=== PATIENT | female | born 2005 | race Caucasian/White ===

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

== ENCOUNTER 2023-03-07 17:45 | Emergency (ER) | payer OTHER, SELFPAY ==
--- NOTE | ~2023-03-07 | XR_ITS ---
EXAMINATION: XR cervical spine 4-5V DATE: 03/07/2023 19:18 INDICATION: Neck pain. Fall. TECHNIQUE: 6 views of cervical spine were obtained. COMPARISON: None. FINDINGS: There is mild kyphosis of cervical spine. Vertebral body heights and intervertebral disc he ights are normal. The facet joints are normal. No neural foraminal stenosis or central canal stenosis . No prevertebral soft tissue swelling. IMPRESSION: 1. No fracture. Reviewed, dictated and finalized at location E. STED AIRCREW/AERIAL OBSERVER/GUNNER IMPRESSION: 1. No fracture.
--- NOTE | ~2023-03-07 | XR_ITS ---
EXAMINATION: XR lumbar spine 2-3V DATE: 03/07/2023 19:18 INDICATION: Low back pain. Fall. TECHNIQUE: 3 views of lumbar spine on 4 radiographs were obtained. COMPARISON: None. FINDINGS: There is 5 degrees levocurvature of lumbar spine. Vertebral body heights are normal. L4 is a limbus vertebra. Intervertebral disc heights are normal. The facet joints are normal. IMPRESSION: 1. No fracture. Reviewed, dictated and finalized at location E. RAFT RIGGING AND CONTROLS MECHANIC IMPRESSION: 1. No fracture.
[2023-03-07 17:45] VITALS: BP 119/67; PULSE 77; RESP 16; TEMP 37; O2SAT 99
--- NOTE | 2023-03-07 18:04 | ED.BACK ---
HPI - Back Pain/Injury General Chief Complaint: Back Pain/Injury Stated Complaint: back pain Time Seen by Provider: 03/07/23 17:48 Source: patient and family Mode of arrival: ambulatory Limitations: no limitations History of Present Illness HPI Narrative: Patient is a 17-year-old female with an injury a few days ago. She fell on some ice and slipped onto her lower back and also cause some cervical neck pain during the fall without direct injury. MD elicited complaint: back pain and back injury Onset (ago): day(s) Timing: constant Severity: moderate Pain scale (0-10): 5 Similar Symptoms Previously: No Quality: burning, sharp, aching, tingling and throbbing Location: lumbar spine ( And cervical spine) Radiation: buttocks and right upper leg Exacerbating factors: movement Relieving factors: immobilization Context: fall Associated symptoms: weakness ( of her upper extremity arms which has resolved at this time) and numbness ( of lower extremity bilaterally which has resolved at this time) Work related injury: No Related Data Home Medications Medication Instructions Recorded Confirmed norgestimate 0.25 mg-ethinyl 1 tablet PO DAILY 07/01/22 03/07/23 estradiol 35 mcg tablet (Estarylla) Allergies Allergy/AdvReac Type Severity Reaction Status Date / Time acetaminophen [From Percocet] Allergy Hives Verified 03/07/23 17:53 oxycodone [From Percocet] Allergy Hives Verified 03/07/23 17:53 Review of Systems Review of Systems: All systems reviewed & are unremarkable except as noted in HPI and below Constitutional: Constitutional: Reports no additional constitutional complaints Eyes: Eyes: Reports no additional eye complaints ENT: Reports system reviewed and no additional complaints, except as documented Cardiovascular: Cardiovascular: Reports no additional cardiovascular complaints Respiratory: Respiratory: Reports no additional respiratory complaints Gastrointestinal: Gastrointestinal: Reports no additional gastrointestinal complaints Genitourinary: Genitourinary: Reports no additional female genitourinary complaints Musculoskeletal: Musculoskeletal: Reports no additional musculoskeletal complaints Integumentary/Breasts: Skin/Breast: Reports system reviewed and no additional complaints, except as docu Neurologic: Reports system reviewed and no additional complaints, except as documented Psychiatric: Psychiatric: Reports no additional psychiatric complaints Endocrine: Endocrine: Reports no additional endocrine complaints Hematologic/Lymphatic: Hematologic/Lymphatic: Reports no additional hematologic/lymphatic complaints Allergic/Immunologic: Allergic/Immunologic: Reports no additional allergic/immunologic complaints Exam Const: General: healthy appearing Nutritional Appearance: well nourished Orientation/consciousness: patient oriented x3 HENMT: Head: normal to inspection Ears: external ears normal Face/Nose/Sinus: Normal external nose present Eyes: Conjunctivae: conjunctivae normal Pupils: Equal, round and reactive pupils present EOM: EOMs intact bilaterally Neck: Neck: normal visual inspection Chest: Chest palpation & inspection: normal inspection of the chest Resp: Effort & Inspection: normal respiratory effort and not labored Auscultation: clear to auscultation bilaterally and no crackles Cardio: Rate: regular rate Rhythm: regular rhythm Heart sounds: no murmurs GI: Inspection: non-distended GI Palp: Yes Soft to palpation, No Tenderness to palpation present (GI) and No Guarding due to palpation present (GI) Auscultation: normal bowel sounds : General: Yes bladder normal to palpation Back/Spine/Pelvis: Back: no CVA tenderness Other: tender cervical spine midline and lumbar spine midline on examination as well as paraspinal muscles on both areas Skin: General skin exam: normal color Rashes: no rashes Wounds: no wounds Neuro: General: patient oriented x3, moves all extremit
[2023-03-07 18:34] LABS: Appearance Urine Clear (Clear); Bilirubin Urine Negative (Negative); Blood Urine 2+ (Negative); Color Urine Yellow (Yellow); Glucose Urine UA Negative (Negative); Ketones Urine Negative (Negative); Leukocyte Esterase Ur Negative LEU/UL (Negative); Nitrate Urine Negative (Negative); Protein Urine Negative (Negative); Specific Grav Ur >= 1.030 (1.010-1.020)
[2023-03-07 18:36] LABS: Add Urine Microscopic? YES; Bacteria Urine 1+ /hpf; Pregnancy On Board Control Positive; Squamous Epithelial Cell Urine Rare /hpf (Few); Urine Pregnancy Test Negative; WBC Urine 0-3 /hpf (0-3)
[2023-03-07 20:06] VITALS: BP 116/70; PULSE 70; RESP 18; O2SAT 99
== END 2023-03-07 20:04 | disposition home or self-care (01) ==
PROVIDERS: Emergency Provider Emergency Medicine; PCP Physician Assistant
DX: M54.16 Radiculopathy, lumbar region (principal); M54.12 Radiculopathy, cervical region; W00.0XXA Fall on same level due to ice and snow, initial encounter
CPT/HCPCS: 72050; 72100; 81001; 81025; 99283

== ENCOUNTER 2023-03-12 21:40 | Emergency (ER) | payer OTHER, SELFPAY ==
[2023-03-12 21:40] VITALS: BP 131/91; PULSE 94; RESP 18; TEMP 36.8; O2SAT 100
--- NOTE | 2023-03-12 21:44 | ECG_ITS ---
Measurements Intervals [place] Rate: 73 P: 2 ME: 143 QRS: 8 QRSD: 93 T: 13 QT: 373 QTc: 412 Interpretive Statements SINUS RHYTHM NORMAL ECG NO PREVIOUS ECG AVAILABLE FOR COMPARISON Electronically Signed On 03-14-2023 6:58:20 INFORMATION TECHNOLOGY OFFICER by Jagdish Contreras M.D.
--- NOTE | 2023-03-12 21:46 | ED.GENADULT ---
HPI - General Adult General Chief complaint: Chest Pain Stated complaint: headache Time Seen by Provider: 03/12/23 21:43 Source: patient Mode of arrival: ambulatory Limitations: no limitations History of Present Illness HPI narrative: 17-year-old female no significant past medical history had a fall for which she presented to the ER 03/07/2023 for neck and back pain. She had x-rays which were unremarkable. She was treated with steroids and orphenadrine. She presents today with -- headache- started this morning. Throbbing. The headache was generalized no nausea /vomiting. No photophobia or phonophobia. -- chest pain-- Chest pain has been present all day. It subsided for a short while and then came short while ago. There is no radiation of the pain. No radiation of the pain. No lightheadedness. Questionable shortness of breath. complained of palpitation. Onset (ago): hour(s) ( Started 12 hours ago) Location: head and chest Radiation: non-radiation Severity: severe Quality: aching Pain Consistency: constant Relieving factors: none Exacerbating factors: none Treatments prior to arrival: none Related Data Home Medications Medication Instructions Recorded Confirmed norgestimate 0.25 mg-ethinyl 1 tablet PO DAILY 07/01/22 03/12/23 estradiol 35 mcg tablet (Estarylla) Allergies Allergy/AdvReac Type Severity Reaction Status Date / Time acetaminophen [From Percocet] Allergy Hives Verified 03/12/23 21:45 oxycodone [From Percocet] Allergy Hives Verified 03/12/23 21:45 Review of Systems Review of Systems: All systems reviewed & are unremarkable except as noted in HPI and below Constitutional: Constitutional: Reports as per HPI and Reports no additional constitutional complaints Eyes: Eyes: Reports as per HPI and Reports no additional eye complaints ENT: Reports system reviewed and no additional complaints, except as documented, Reports as per HPI and Reports Normal hearing present Cardiovascular: Cardiovascular: Reports as per HPI, Reports no additional cardiovascular complaints, Reports chest pain at rest, Reports rapid heart rate and Reports dyspnea Respiratory: Respiratory: Reports as per HPI, Reports no additional respiratory complaints and Reports no additional respiratory complaints Gastrointestinal: Gastrointestinal: Reports as per HPI and Reports no additional gastrointestinal complaints Genitourinary: Genitourinary: Reports no additional female genitourinary complaints and Reports as per HPI Comments: Patient is currently having Menstrual bleeding. Musculoskeletal: Musculoskeletal: Reports no additional musculoskeletal complaints and Reports as per HPI Integumentary/Breasts: Skin/Breast: Reports system reviewed and no additional complaints, except as docu and Reports as per HPI Neurologic: Reports system reviewed and no additional complaints, except as documented and Reports as per HPI Psychiatric: Psychiatric: Reports no additional psychiatric complaints and Reports as per HPI Endocrine: Endocrine: Reports no additional endocrine complaints and Reports as per HPI Hematologic/Lymphatic: Hematologic/Lymphatic: Reports no additional hematologic/lymphatic complaints and Reports as per HPI Allergic/Immunologic: Allergic/Immunologic: Reports no additional allergic/immunologic complaints and Reports as per HPI Exam Narrative: Pulse of 94. Blood pressure 131/91. Oxygen saturation of 100% on room air. Const: General: cooperative, healthy appearing and comfortable HENMT: Head: normal to inspection, normocephalic and atraumatic Ears: hearing grossly normal bilaterally and external ears normal Face/Nose/Sinus: Normal external nose present and Normal nares present Mouth: Yes Normal oral and palatal mucosa present Throat: posterior oropharynx normal and tonsils normal Eyes: General: appearance normal, both eyes and all related structures Pupils: Equal, round and reactive pupils prese
[2023-03-12 21:59] LABS: Basophils Absolute Auto 0.07 K/mm3 (0.00-0.10); Basophils Percent Auto 0.6 % (0.0-1.0); Eosinophils Absolute Auto 0.31 K/mm3 (0.02-0.50); Eosinophils Percent Auto 2.5 % (1.0-6.0); Hematocrit 41.1 % (35.0-49.0); Hemoglobin 13.3 g/dL (12.0-15.0); Immature Granulocyte Absolute 0.03 K/mm3 (0.00-0.00); Immature Granulocyte Percent A 0.2 % (0.0-0.0); Lymphocytes Absolute Auto 5.23 K/mm3 (1.10-4.50); Lymphocytes Percent Auto 42.2 % (18.0-42.0); Mean Corpuscular HGB Conc 32.4 g/dL (32.0-36.0); Mean Corpuscular Hemoglobin 27.5 pg (27.0-31.0); Mean Corpuscular Volume 84.9 fL (78.0-102.0); Mean Platelet Volume 9.7 fl (9.2-11.8); Monocytes Percent Auto 6.5 % (2.0-11.0); Neutrophils Absolute Auto 5.9 K/mm3 (1.7-7.2); Platelet Count Result 273 K/mm3 (150-420); Red Blood Count 4.84 M/mm3 (4.20-5.40); Red Cell Distribution Width 12.8 % (11.6-14.4); White Blood Count 12.4 K/mm3 (4.8-10.8)
[2023-03-12 22:15] LABS: Appearance Urine Clear (Clear); Bilirubin Urine Negative (Negative); Color Urine Light Yellow (Yellow); Glucose Urine UA Negative (Negative); Ketones Urine Negative (Negative); Leukocyte Esterase Ur Negative LEU/UL (Negative); Nitrate Urine Negative (Negative); Protein Urine Negative (Negative); Urobilinogen Urine 0.2 mg/dL (0.2-1.0)
[2023-03-12 22:17] LABS: Lactic Acid Reflex 1.3 mmol/L (0.4-2.0)
[2023-03-12 22:19] LABS: Add Urine Microscopic? YES; Bacteria Urine Trace /hpf; Blood Urine Trace-lysed (Negative); RBC Urine 0-2 /hpf (0-2); WBC Urine 0-3 /hpf (0-3)
[2023-03-12 22:20] LABS: Pregnancy On Board Control Positive; Urine Pregnancy Test Negative
[2023-03-12 22:30] LABS: Alanine Aminotransferase 18 U/L (14-59); Albumin Level 3.1 g/dL (3.4-5.0); Alkaline Phosphatase 69 U/L (50-130); Anion Gap 10 mmol/L (8-16); Aspartate Amino Transferase 12 U/L (15-37); Bilirubin,Total 0.4 mg/dL (0.00-1.00); Blood Urea Nitrogen 12 mg/dL (7-18); Calcium 8.6 mg/dL (8.5-10.1); Carbon Dioxide 28 mmol/L (21-32); Chloride 100 mmol/L (98-108); Estimated CRCL calculation 115 ml/min; Estimated Glomerular Filt Rate > 60; Glucose 93 mg/dL (70-99); Osmolality Calculated 285 mOsm/kg (285-295); Potassium 3.8 mmol/L (3.5-5.1); Sodium 138 mmol/L (136-145); Thyroid Stimulating Hormone 5.42 uIU/mL (0.52-4.13); Total Protein 7.2 g/dL (6.4-8.2)
[2023-03-12 22:32] LABS: Troponin I < 4.0 ng/L (0.00-60.4)
[2023-03-12 22:46] VITALS: BP 117/70; PULSE 87; RESP 14; O2SAT 100
[2023-03-12] MEDS: KETOROLAC 30 MG/ML VIAL (*BKC) IM (22:54)
== END 2023-03-12 23:00 | disposition home or self-care (01) ==
PROVIDERS: Emergency Provider Internal Medicine Critical Care Medicine; PCP Physician Assistant
DX: F41.9 Anxiety disorder, unspecified (principal); R51.9 Headache, unspecified
CPT/HCPCS: 36415; 80053; 81001; 81025; 83605; 84443; 84484; 85025; 93005; 96372; 99284; J1885

== ENCOUNTER 2023-08-29 07:04 | Outpatient (CLI) | payer OTHER, SELFPAY ==
--- NOTE | ~2023-08-29 | US_ITS ---
US renal BI 08/29/2023 07:39 Procedure: Realtime transabdominal ultrasound of the kidneys and bladder. Indication: Hematuria Comparison: Ultrasound dated 08/12/2018 Findings: Renal echotexture is normal bilaterally without hydronephrosis, contour deforming mass or r enal calculus. The right kidney measures 9.4 cm and left kidney measures 11.4 cm. Bladder within nor mal limits. Impression: 1: Unremarkable renal ultrasound. No stones, masses or hydronephrosis. Reviewed, dictated and finalized at location B. Impression: 1: Unremarkable renal ultrasound. No stones, masses or hydronephrosis.
== END 2023-08-29 07:05 | disposition home or self-care (01) ==
LOC: CHSIMG 07:07
PROVIDERS: PCP Physician Assistant; Visit Provider Physician Assistant
DX: R31.9 Hematuria, unspecified (principal)
CPT/HCPCS: 76775

== ENCOUNTER 2023-09-15 20:30 | Emergency (ER) | payer OTHER, SELFPAY ==
--- NOTE | ~2023-09-15 | XR_ITS ---
EXAM: XR ankle LT min 3V DATE: 09/15/2023 21:10 HISTORY: TWIST . COMPARISON: 04/02/2021. FINDINGS: Normal mineralization. No fracture or dislocation. No lytic or blastic lesion. Joint space s are maintained. No erosion or periosteal change. Soft tissues within normal limits. IMPRESSION: No acute osseous finding in the left ankle. Reviewed, dictated and finalized at location K.
[2023-09-15 20:34] VITALS: BP 126/69; PULSE 81; RESP 18; TEMP 36.6; O2SAT 97
--- NOTE | 2023-09-15 21:23 | ED.GENADULT ---
HPI - General Adult General Chief complaint: Extremity Injury, Lower Stated complaint: ANKLE SWELLING Time Seen by Provider: 09/15/23 20:35 Source: patient Mode of arrival: ambulatory Limitations: no limitations History of Present Illness HPI narrative: PATIENT TWISTED LEFT ANKLE AFTER JUMPING. NO OTHER INJURIES. Related Data Home Medications Medication Instructions Recorded Confirmed norgestimate 0.25 mg-ethinyl 1 tablet PO DAILY 07/01/22 09/15/23 estradiol 35 mcg tablet (Estarylla) Allergies Allergy/AdvReac Type Severity Reaction Status Date / Time acetaminophen [From Percocet] Allergy Hives Verified 09/15/23 20:45 oxycodone [From Percocet] Allergy Hives Verified 09/15/23 20:45 Review of Systems Review of Systems: All systems reviewed & are unremarkable except as noted in HPI and below Exam Narrative: GENERAL APPEARANCE: WELL-DEVELOPED, WELL-NOURISHED SKIN: NORMAL COLOR VASCULAR: NORMAL PERIPHERAL PULSES, NORMAL CAPILLARY REFILL. 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 DISCHARGE ON CRUTCHES, GISELLE WRAP, IBUPROFEN NEEDED Vital Signs Vital Signs: Vital Signs Oxygen Delivery Room Air 09/15/23 20:30 Temperature 36.6 C 09/15/23 20:34 Pulse Rate 81 09/15/23 20:34 Respiratory Rate 18 09/15/23 20:34 Blood Pressure 126/69 09/15/23 20:34 Pulse Oximetry 97 09/15/23 20:34 Oxygen Delivery Room Air 09/15/23 20:34 Imaging Data Radiologist's impression: X-RAY LEFT ANKLE SHOWED NO ACUTE OSSEOUS ABNORMALITY Critical Care Time Critical Care Time Critical Care Time: No Discharge Plan Discharge Clinical Impression: Ankle sprain and strain Patient Disposition: Home, Self-Care Condition: Stable Instructions: Ankle Sprain (ED) Additional Instructions: RETURN IF SYMPTOMS ARE WORSENING , CALL YOUR FAMILY PHYSICIAN FOR APPOINTMENT, CONTINUE HOME MEDICATIONS., KEEP FOOT ELEVATED, ICE PACK 20 MINUTES/HOUR FOR THE NEXT 24 HOURS, CRUTCHES, TAKE IBUPROFEN 600 EVERY 6 HOURS NEEDED Prescriptions: No Action norgestimate-ethinyl estradiol [Estarylla] 0.25-35 mg-mcg tablet 1 tablet PO DAILY Follow-up/Referrals: Munira,KIMBERLY Jiang [Primary Care Provider] - Stand Alone Forms: Work/School Release IP
[2023-09-15] MEDS: IBUPROFEN 600 MG TABLET PO (21:59)
[2023-09-15 22:00] VITALS: BP 122/60; PULSE 78; RESP 18; O2SAT 99
--- NOTE | 2023-09-15 22:10 | PC.NURSE ---
+PMS POST GISELLE APPLICATION
== END 2023-09-15 22:00 | disposition home or self-care (01) ==
PROVIDERS: Emergency Provider Emergency Medicine; PCP Physician Assistant
DX: S93.402A Sprain of unspecified ligament of left ankle, initial encounter (principal); S96.912A Strain of unspecified muscle and tendon at ankle and foot level, left foot, initial encounter; X50.0XXA Overexertion from strenuous movement or load, initial encounter
CPT/HCPCS: 73610; 99283; A9270

== ENCOUNTER 2023-11-28 07:13 | Outpatient (CLI) | payer OTHER, SELFPAY ==
--- NOTE | ~2023-11-28 | US_ITS ---
Limited Abdominal Sonogram: Real-time sonographic imaging of the right upper quadrant was performed. Clinical History: Right upper quadrant pain Findings: The liver appears normal with no evidence of mass lesion or bile duct dilatation. Main por vito vein demonstrates normal direction of flow. The gallbladder is well distended, and appears normal with no evidence of gallstone or wall thickening. The common bile duct measures 4 mm. The visualize d pancreas, aorta, and IVC are unremarkable. Impression: No significant abnormality seen. Reviewed, dictated and finalized at location M. Impression: No significant abnormality seen.
== END 2023-11-28 07:14 | disposition home or self-care (01) ==
LOC: CHSIMG 07:16
PROVIDERS: PCP Physician Assistant; Visit Provider Physician Assistant
DX: R10.11 Right upper quadrant pain (principal)
CPT/HCPCS: 76705